=== PATIENT | female | born 1960 | race Caucasian/White ===

== ENCOUNTER → 2020-01-31 | Outpatient (CLI) | payer OTHER ==
--- NOTE | 2020-01-31 11:13 | US ---
EXAMINATION TYPE: US thyroid st tissue head/neck DATE OF EXAM: 01/31/2020 COMPARISON: NONE CLINICAL HISTORY: E21.0 PRIMARY HYPERPARATHYROIDISM. Hyperparathyroidism GLAND SIZE: Right Lobe: 6.4 x 1.9 x 1.9 cm Overall Parenchyma: homogenous Left Lobe: 5.4 x 2.0 x 1.7 cm Overall Parenchyma: homogeneous Isthmus Thickness: 0.4 cm NODULES RIGHT: # of nodules measured on right: 1 1. 0.6 X 0.3 x 0.6 cm hypoechoic cystic nodule at the medial inferior pole with well-defined margin s. This nodule is wider than tall and shows no intranodular vascularity. Prior size: no previous LEFT: # of nodules measured on left: 3 1. 1.2 X 1.3 x 1.1 cm isoechoic solid nodule at the mid pole with well-defined margins. This nodule is wider than tall and shows intranodular vascularity. Prior size: no previous 2. 0.8 X 0.5 x 0.7 cm hypoechoic mixed nodule at the lateral superior pole with well-defined margins . This nodule is wider than tall and shows no intranodular vascularity. Prior size: no previous 3. 0.8 X 0.6 x 0.9 cm hypoechoic mixed nodule at the mid inferior pole with well-defined margins. T his nodule is wider than tall and shows intranodular vascularity. Prior size: no previous ISTHMUS: # of nodules measured in the isthmus: 0 Bilateral neck scanned, no evidence of lymphadenopathy. Enlarged gland with multiple bilateral nodules with largest described above. IMPRESSION: Enlarged multinodular thyroid gland. The largest nodule measures 1.3 cm on the left and i s solid in nature. This nears criteria for fine-needle aspiration. Thyroid ultrasound is recommended in 6-12 months to assess for any interval growth.
[2020-01-31 11:47] LABS: ALT 18 U/L (4-34); AST 28 U/L (14-36); African American GFR (CKD) >90 (>60 ml/min/1.73 sqM); Albumin 4.5 g/dL (3.5-5.0); Alkaline Phosphatase 85 U/L (38-126); Anion Gap 4 mmol/L; Blood Urea Nitrogen 12 mg/dL (7-17); Calcium 10.8 mg/dL (8.4-10.2); Carbon Dioxide 29 mmol/L (22-30); Chloride 106 mmol/L (98-107); Glucose 91 mg/dL (74-99); Non-African American GFR(CKD) >90 (>60 ml/min/1.73 sqM); Potassium 4.8 mmol/L (3.5-5.1); Sodium 139 mmol/L (137-145); Total Bilirubin 0.3 mg/dL (0.2-1.3)
--- NOTE | 2020-01-31 12:44 | BD ---
EXAMINATION TYPE: Axial Bone Density DATE OF EXAM: 01/31/2020 COMPARISON: NONE CLINICAL HISTORY: 59 YR OLD FEMALE....ICD-10 CODE: E21.0 PRIMARY HYPERPARATHYROIDISM Height: 59.3 Weight: 109 FRAX RISK QUESTIONS: Secondary Osteoporosis: YES 3. Menopause before 45: YES Current Tobacco Use: YES RISK FACTORS HISTORY OF: HX OF ELBOW ONLY FX... YOUTH Family History of Osteoporosis: YES, HER GRANDMOTHER Diet low in dairy products/other sources of calcium: YES Postmenopausal woman: YES, AT ABOUT AGE AT 39 YRS OLD, UNKNOWN FOR MENOPAUSE DATE Hyperparathyroidism: YES Adrenal Insufficiency: NO MEDICATIONS: Additional Medications: REFLUX MEDS, MULTIVITAMIN Additional History: HYPERPARATHYROIDISM, REFLUX EXAM MEASUREMENTS: Bone mineral densitometry was performed using the [facility]. Bone mineral density as measured about the Lumbar spine is: ----- L1-L4(G/cm2): 0.836 T Score Values are as follows: ----- L1: -3.0 ----- L2: -2.8 ----- L3: -2.4 ----- L4: -3.3 ----- L1-L4: -2.9 Bone mineral density FIRST DEXA SCAN..........BASELINE STUDY Bone mineral density about the R hip (g/cm2): 0.741 Bone mineral density about the L hip (g/cm2): 0.779 T Score values are as follows: -----R Neck: -2.2 -----L Neck: -2.3 -----R Total: -2.1 -----L Total: -1.8 Bone mineral density BASELINE STUDY FRAX%s: THERE IS A 10.2% CHANCE FOR A MAJOR OSTEOPOROTIC FX AND A 2.8% FOR HIP.....PROBABILITY FOR FX IN 10 YRS TIME IMPRESSION: Osteoporosis (T Score less than -2.5) with respect to the lumbar spine. There is increased fracture risk and therapy is usually indicated based on age. Re-Screen 1-2 years. NOTE: T-SCORE=SD OF THE YOUNG ADULT MEAN.
== END | disposition home or self-care (01) ==
LOC: RADBDWWP 09:57
PROVIDERS: ATTEND Internal Medicine Endocrinology, Diabetes & Metabolism
DX: M81.0 Age-related osteoporosis without current pathological fracture (principal); E04.2 Nontoxic multinodular goiter; E21.0 Primary hyperparathyroidism
CPT/HCPCS: 76536; 77080; 80053; 82306; 83970

== ENCOUNTER → 2020-08-13 | Outpatient (CLI) | payer OTHER ==
[2020-08-13 21:36] LABS: African American GFR (CKD) 109.9 (60.0-200.0); Albumin 4.5 g/dL (3.80-4.90); Albumin/Globulin Ratio 2.65 (1.60-3.17); Anion Gap 8.1 mmol/L (4.00-12.00); BUN/Creat Ratio 12.86 Ratio (12.00-20.00); Calcium 9.7 mg/dL (8.7-10.3); Carbon Dioxide 25.9 mmol/L (21.6-31.8); Globulin 1.7 g/dL (1.6-3.3); Non-African American GFR(CKD) 94.8 (60.0-200.0); Potassium 4.5 mmol/L (3.5-5.5); Total Bilirubin 0.2 mg/dL (0.2-1.2); Total Protein 6.2 g/dL (6.2-8.2)
== END | disposition home or self-care (01) ==
LOC: LABWHC1 12:58
PROVIDERS: ATTEND Internal Medicine Endocrinology, Diabetes & Metabolism
DX: E21.0 Primary hyperparathyroidism (principal)
CPT/HCPCS: 36415; 80053; 82306; 83970

== ENCOUNTER → 2021-01-06 | Outpatient (CLI) | payer OTHER ==
[2021-01-06 22:14] LABS: African American GFR (CKD) 93.5 (60.0-200.0); Albumin 4.8 g/dL (3.80-4.90); Albumin/Globulin Ratio 2.82 (1.60-3.17); BUN/Creat Ratio 12.5 Ratio (12.00-20.00); Calcium 9.2 mg/dL (8.7-10.3); Globulin 1.7 g/dL (1.6-3.3); Non-African American GFR(CKD) 80.7 (60.0-200.0); Potassium 4.2 mmol/L (3.5-5.5); Total Bilirubin 0.3 mg/dL (0.2-1.2); Total Protein 6.5 g/dL (6.2-8.2)
== END | disposition home or self-care (01) ==
LOC: LABWHC1 13:47
PROVIDERS: ATTEND Internal Medicine Endocrinology, Diabetes & Metabolism
DX: E55.9 Vitamin D deficiency, unspecified (principal); M81.8 Other osteoporosis without current pathological fracture
CPT/HCPCS: 36415; 80053; 82306; 83970

== ENCOUNTER → 2021-03-13 | Outpatient (CLI) | payer OTHER ==
[2021-03-13 15:51] LABS: ALT 19 U/L (4-34); AST 41 U/L (14-36); African American GFR (CKD) >90 (>60 ml/min/1.73 sqM); Albumin 4.3 g/dL (3.5-5.0); Alkaline Phosphatase 82 U/L (38-126); Anion Gap 6 mmol/L; Blood Urea Nitrogen 10 mg/dL (7-17); Calcium 9.8 mg/dL (8.4-10.2); Carbon Dioxide 27 mmol/L (22-30); Chloride 106 mmol/L (98-107); Glucose 94 mg/dL (74-99); Non-African American GFR(CKD) 88 (>60 ml/min/1.73 sqM); Sodium 139 mmol/L (137-145); Total Bilirubin 0.7 mg/dL (0.2-1.3)
[2021-03-13 15:59] LABS: Potassium 5.9 mmol/L (3.5-5.1)
--- NOTE | 2021-03-15 19:19 | US ---
EXAMINATION TYPE: US thyroid st tissue head/neck DATE OF EXAM: 03/13/2021 COMPARISON: 01/31/2020 CLINICAL HISTORY: 60-year-old female E04.2 MULTINODULAR GOITER. TECHNIQUE: Multiple sonographic images of the thyroid gland are obtained. FINDINGS: GLAND SIZE: Right Lobe: 5.3 x 2.2 x 2.0 cm Overall Parenchyma: homogenous Left Lobe: 4.8 x 1.9 x 1.8 cm Overall Parenchyma: homogeneous Isthmus Thickness: 0.4 cm NODULES: Numerous scattered small colloid cysts are present. RIGHT: # of nodules measured on right: 1 1. 0.9 X 0.6 x 0.9 cm, lower , mixed, primarily solid isoechoic nodule, which is wider than tall, w ith ill-defined margins, without echogenic foci. Prior size: Not clearly seen previously. A previous medial lower pole cyst has resolved. LEFT: # of nodules measured on left: 3 1. 1.3 X 1.0 x 1.0 cm, mid , solid, isoechoic nodule, which is wider than tall, with ill-defined ma rgins, without echogenic foci. Prior size: 1.2 x 1.3 x 1.1 cm 2. 0.7 X 0.4 x 0.7 cm, upper , mixed, solid and cystic nodule, which is wider than tall, with smoo th margins, without echogenic foci. Prior size: 0.8 x 0.5 x 0.7 cm 3. 0.7 X 0.4 x 0.6 cm, lower , mixed, primarily solid, heterogeneous isoechoic nodule, which is wid er than tall, with ill-defined margins, without echogenic foci. Prior size: 0.8 x 0.6 x 0.9 cm ISTHMUS: # of nodules measured in the isthmus: 0 Bilateral neck scanned, no evidence of lymphadenopathy. IMPRESSION: 1. Multinodular goiter redemonstrated. 2. A 9 mm primarily solid nodule on the right was not clearly seen previously. This can be reassessed at short interval follow-up 3. The 3 dominant nodules measuring up to 1.3 cm on the left are largely unchanged.
== END | disposition home or self-care (01) ==
LOC: RADUSWWP 14:38
PROVIDERS: ATTEND Internal Medicine Endocrinology, Diabetes & Metabolism
DX: E04.2 Nontoxic multinodular goiter (principal)
CPT/HCPCS: 76536; 80053; 82306; 82523; 83970

== ENCOUNTER → 2022-10-08 | Outpatient (CLI) | payer OTHER ==
--- NOTE | 2022-10-11 10:18 | BD ---
EXAMINATION TYPE: Axial Bone Density DATE OF EXAM: 10/08/2022 COMPARISON: 01/31/2020 CLINICAL HISTORY: 62 years year old Female. ICD-10 CODE: M81.0 Age related Height: 58.7 IN Weight: 131 LBS FRAX RISK QUESTIONS: SECONDARY OSTEOPOROSIS: PARTIAL HYST AGE 39 Current Tobacco Use: YES RISK FACTORS HISTORY OF: Active: YES Diet low in dairy products/other sources of calcium: YES Postmenopausal woman: PARTIAL HYST AGE 39 MEDICATIONS: Additional Medications: CALCIUM, VIT D, EXAM MEASUREMENTS: Bone mineral densitometry was performed using the [facility]. Bone mineral density as measured about the Lumbar spine is: ----- L1-L4(G/cm2): 0.914 T Score Values are as follows: ----- L1: -2.2 ----- L2: -1.9 ----- L3: -2.0 ----- L4: -2.8 ----- L1-L4: -2.2 Bone mineral density has: Increased 8.4% since study of: 01/31/2020 Bone mineral density about the R hip (g/cm2): 0.737 Bone mineral density about the L hip (g/cm2): 0.727 T Score values are as follows: -----R Neck: -2.2 -----L Neck: -2.2 -----R Total: -2.1 -----L Total: -1.6 Bone mineral density has: Increased 2.0% since study of: 01/31/2020 FRAX%s: The graph provided illustrates a 11.6 chance for a major osteoporotic fx and a 3.0 chance for the hips probability for fx in 10 years time. IMPRESSION: Osteopenia (T Score between -2.5 and -1). There is slightly increased risk of fracture and the patient may be considered for treatment. Re-Screen 2-5 years. NOTE: T-SCORE=SD OF THE YOUNG ADULT MEAN.
--- NOTE | 2022-10-11 19:35 | MM ---
Reason for Exam: Screening (asymptomatic). Baseline mammogram. Patient History: Menarche at age 14. First Full-Term at age 20. Hysterectomy at age 39. Postmenopausal. Risk Values: Karolyn 5 year model risk: 1.1%. NCI Lifetime model risk: 5.2%. Prior Study Comparison: Patient's first Mammogram. Tissue Density: The breast tissue is heterogeneously dense. This may lower the sensitivity of mammography. Findings: Analyzed By CAD. No persisting abnormality on 3-D images. Few scattered benign punctate calcifications are noted. No significant mass, suspicious microcalcification, or other discrete abnormality is seen. Overall Assessment: Benign, BI-RAD 2 Management: Screening Mammogram of both breasts in 1 year. 1. Patient should continue monthly self breast exams. 2. A clinical breast exam by your physician is recommended on an annual basis. 3. This exam should not preclude additional follow-up of suspicious palpable abnormalities. Electronically signed and approved by: Jarocho Kilpatrick M.D. Radiologist
== END | disposition home or self-care (01) ==
LOC: RADMAMWWP 16:18
PROVIDERS: ATTEND Family Medicine
DX: Z12.31 Encounter for screening mammogram for malignant neoplasm of breast (principal); M85.89 Other specified disorders of bone density and structure, multiple sites; Z78.0 Asymptomatic menopausal state
CPT/HCPCS: 77063; 77067; 77080

== ENCOUNTER 2022-10-28 08:10 | Day surgery (SDC) | payer OTHER ==
[2022-10-26 14:56] VITALS: BMI 26.4
[2022-10-28] MEDS ORDERED: LACTATED RINGERS 1,000 ML IV SCH (08:30)
[2022-10-28] MEDS ORDERED: LIDOCAINE 1% (10MG/ML) FOR IV START INTRADERMA PRN (08:30)
[2022-10-28] MEDS ORDERED: LACTATED RINGERS 1,000 ML IV ONE (08:37)
[2022-10-28 08:44] VITALS: RESP 16; TEMP 96.8
[2022-10-28] MEDS ORDERED: PROPOFOL 10 MG/ML 20 ML VIAL IV ONE (09:10)
--- NOTE | 2022-10-28 09:12 | P.GSHP ---
History of Present Illness H&P Date: 10/28/22 Chief Complaint: Screening colonoscopy This 62-year-old female presents today for screening colonoscopy. Patient denies a significant GI complaints. Past Medical History Past Medical History: Osteoarthritis (OA) Additional Past Medical History / Comment(s): constipation / diarrhea., hx of severe kidney infection as a child. History of Any Multi-Drug Resistant Organisms: None Reported Past Surgical History: Section, Hysterectomy Additional Past Surgical History / Comment(s): partial parathyroid removed., c- section x3. Past Anesthesia/Blood Transfusion Reactions: No Reported Reaction Past Psychological History: No Psychological Hx Reported Smoking Status: Current every day smoker Past Alcohol Use History: None Reported Additional Past Alcohol Use History / Comment(s): smokes 1 ppd., started smoking 17 yrs old. Past Drug Use History: None Reported - Past Family History Father Family Medical History: Cancer Additional Family Medical History / Comment(s): lung cancer Mother Family Medical History: Cancer Additional Family Medical History / Comment(s): throat cancer Medications and Allergies Home Medications Medication Instructions Recorded Confirmed Type Calcium Carbonate [Calcium] 600 mg PO DAILY 10/26/22 10/26/22 History Cholecalciferol [Vitamin D3 (25 50 mcg PO DAILY 10/26/22 10/26/22 History Mcg = 1000 Iu)] Multivit with Calcium,Iron,Min 1 each PO DAILY 10/26/22 10/26/22 History [Women's Multivitamin] Naproxen Sodium [Aleve] 220 mg PO ONCE 10/26/22 10/26/22 History Allergies Allergy/AdvReac Type Severity Reaction Status Date / Time Milk Containing Products Allergy Unknown Diarrhea, Verified 10/26/22 14:39 [Dairy] upset stomach Surgical - Exam Vital Signs Temp Pulse Resp BP Pulse Ox 96.8 F L 83 16 134/90 97 10/28/22 08:38 10/28/22 08:38 10/28/22 08:38 10/28/22 08:38 10/28/22 08:38 - General well developed, well nourished, no distress - Eyes PERRL - ENT normal pinna - Neck no masses - Respiratory normal expansion - Cardiovascular Rhythm: regular - Abdomen Abdomen: soft, non tender Assessment and Plan Assessment: We'll perform screening colonoscopy
--- NOTE | 2022-10-28 09:32 | P.OP ---
Date of Procedure: 10/28/22 Preoperative Diagnosis: Screening colonoscopy Postoperative Diagnosis: Normal colon Procedure(s) Performed: Colonoscopy Anesthesia: MAC Surgeon: Carl De La Garza Pathology: none sent Condition: stable Disposition: PACU Description of Procedure: PROCEDURE: The patient was placed on the endoscopy table in the lateral position. Digital rectal examination was performed which revealed no abnormalities. es. Flexible colonoscope was then placed in the patient's anus and passed throughout the entire colon. The ileocecal valve was visualized. The cecum, ascending, transverse, descending and sigmoid colon were normal. The rectum was normal as well. There were no masses, polyps or diverticula noted in the entire colon. SUMMARY OF FINDINGS: Normal colonoscopy.
[2022-10-28 09:36] VITALS: PULSE 63
[2022-10-28 09:48] VITALS: BP 129/83
== END 2022-10-28 10:16 | disposition home or self-care (01) ==
LOC: ORWHC2ENDO 08:10
PROVIDERS: ATTEND Surgery
DX: Z12.11 Encounter for screening for malignant neoplasm of colon (principal); M19.90 Unspecified osteoarthritis, unspecified site; F17.210 Nicotine dependence, cigarettes, uncomplicated; Z80.1 Family history of malignant neoplasm of trachea, bronchus and lung
CPT/HCPCS: 45378; J2704

== ENCOUNTER 2024-04-01 14:39 | Emergency (ER) | payer OTHER ==
--- NOTE | 2024-04-01 15:01 | ED ---
Abdominal Pain HPI - General Source: patient, RN notes reviewed Mode of arrival: ambulatory Limitations: no limitations <Roselia Oconnor - Last Filed: 04/01/24 15:00> <Baltazar Orourke - Last Filed: 04/01/24 19:09> - General Chief Complaint: Abdominal Pain Stated Complaint: Right side abd pain Time Seen by Provider: 04/01/24 14:55 - History of Present Illness Initial Comments: Quick Note: This is a 63-year-old female who presents to the emergency department for abdominal pain. Reports right lower quadrant abdominal pain for the last few days. She has some radiation into the back. Reports mild nausea but no vomiting. She did have diarrhea at one point that has since improved. Denies any fevers/chills. (Roselia Oconnor) I did review the quick note and do agree with the assessment. Patient does confirm the above. No dysuria no hematuria. She did have some diarrhea. Did have some radiation into the back but also down the right anterior leg she does states she has some numbness to the proximal upper anterior thigh. No fevers chills sweats no history of kidney stones. (Baltazar Orourke) - Related Data Home Medications Medication Instructions Recorded Confirmed Calcium Carbonate [Calcium] 600 mg PO DAILY 10/26/22 10/26/22 Cholecalciferol [Vitamin D3 (25 50 mcg PO DAILY 10/26/22 10/26/22 Mcg = 1000 Iu)] Multivit with Calcium,Iron,Min 1 each PO DAILY 10/26/22 10/26/22 [Women's Multivitamin] Naproxen Sodium [Aleve] 220 mg PO ONCE 10/26/22 10/26/22 Previous Rx's Medication Instructions Recorded Ketorolac [Toradol] 10 mg PO Q6HR #20 tab 04/01/24 Allergies Allergy/AdvReac Type Severity Reaction Status Date / Time Milk Containing Products Allergy Unknown Diarrhea, Verified 10/26/22 14:39 (Dairy) upset [Dairy] stomach Review of Systems ROS Other: All systems not noted in ROS Statement are negative. <Roselia Oconnor - Last Filed: 04/01/24 15:00> ROS Other: All systems not noted in ROS Statement are negative. <Baltazar Orourke - Last Filed: 04/01/24 19:09> ROS Statement: Those systems with pertinent positive or pertinent negative responses have been documented in the HPI. Past Medical History Past Medical History: Hypertension, Osteoarthritis (OA) Additional Past Medical History / Comment(s): constipation / diarrhea., hx of severe kidney infection as a child. History of Any Multi-Drug Resistant Organisms: None Reported Past Surgical History: Section, Hysterectomy Additional Past Surgical History / Comment(s): partial parathyroid removed., x3. Past Anesthesia/Blood Transfusion Reactions: No Reported Reaction Past Psychological History: No Psychological Hx Reported Smoking Status: Current every day smoker Past Alcohol Use History: None Reported Past Drug Use History: None Reported - Past Family History Father Family Medical History: Cancer Additional Family Medical History / Comment(s): lung cancer Mother Family Medical History: Cancer Additional Family Medical History / Comment(s): throat cancer <Roselia Oconnor - Last Filed: 04/01/24 15:00> General Exam Limitations: no limitations <Roselia Oconnor - Last Filed: 04/01/24 15:00> General appearance: alert, in no apparent distress Head exam: Present: atraumatic, normocephalic, normal inspection Eye exam: Present: normal appearance, PERRL, EOMI. Absent: scleral icterus, conjunctival injection, periorbital swelling ENT exam: Present: normal exam, mucous membranes moist Neck exam: Present: normal inspection, full ROM, other (No stridor JVD or bruits). Absent: tenderness, meningismus, lymphadenopathy Respiratory exam: Present: normal lung sounds bilaterally. Absent: respiratory distress, wheezes, rales, rhonchi, stridor Cardiovascular Exam: Present: regular rate, normal rhythm, normal heart sounds. Absent: systolic murmur, diastolic murmur, rubs, gallop, clicks GI/Abdominal exam: Present: soft, tenderness (Mild right upper quadrant and right side tenderness no guarding rebound masses or bruits no pulsatile masses no overt hernias), normal bowel sounds. Absent: distended, guarding, rebound, rigid Rectal exam: Present: deferred Extremities exam: Present: normal inspection, full ROM, normal capillary refill. Absent: tenderness, pedal edema, joint swelling, calf tenderness Back exam: Present: normal inspection Neurological exam: Present: alert, oriented X3, CN II-XII intact Psychiatric exam: Present: normal affect, normal mood Skin exam: Present: warm, dry, intact, normal color. Absent: rash <Baltazar Orourke - Last Filed: 04/01/24 19:09> - General Exam Comments Initial Comments: Visual Physical Exam Vital signs reviewed General: Well-appearing, nontoxic, no acute distress. Head: Normocephalic, atraumatic Eyes: PERRLA, EOMI ENT: Airway patent Chest: Nonlabored breathing Skin: No visual rash, normal skin tone Neuro: Alert and oriented 3 Musculoskeletal: No gross abnormalities (Roselia Oconnor) Is a well-developed well-nourished awake alert oriented x 4 female no acute distress though she does state the pain is 6-7/10 in severity and right lower quadrant area. (SharadBaltazar) Course Vital Signs 04/01/24 14:52 Temperature 97.8 F Pulse Rate 97 Respiratory 20 Rate Blood Pressure 188/123 O2 Sat by Pulse 96 Oximetry Medical Decision Making <Roselia Oconnor - Last Filed: 04/01/24 15:00> - Lab Data Result diagrams: 04/01/24 14:58 04/01/24 14:58 <Baltazar Orourke - Last Filed: 04/01/24 19:09> - Medical Decision Making I performed the QuickNote portion of this chart. Signed Roselia Oconnor PA-C. (Roselia Oconnor) I did review the labs that were performed also did interpret the imaging no acute process seen on the abdominal pelvic CT. The presentation appears to be more likely musculoskeletal in origin the vasculature appears to be intact. Patient will be sent home on a trial of NSAIDs and will follow-up with her doctor. She is in agreement with this. Was pt. sent in by a medical professional or institution ([facility], [facility], urgent care, hospital, or residential...) When possible be specific @ -No Did you speak to anyone other than the patient for history (EMS, parent, family, police, friend...)? What history was obtained from this source @ -No Did you review nursing and triage notes (agree or disagree)? Why? @ -I reviewed and agree with nursing and triage notes Were old charts reviewed (outside hosp., previous admission, EMS record, old EKG, old radiological studies, urgent care reports/EKG's, residential records)? Report findings @ -No old charts were reviewed Differential Diagnosis (chest pain, altered mental status, abdominal pain women, abdominal pain men, vaginal bleeding, weakness, fever, dyspnea, syncope, headache, dizziness, GI bleed, back pain, seizure, CVA, palpatations, mental health, musculoskeletal)? @ -Abdominal pain EKG interpreted by me (3pts min.). @ -As above EKG interpreted by me sinus rhythm at 77 NE interval 142 QRS duration 84 QT/QTc 360/[address]-T wave changes X-rays interpreted by me (1pt min.). @ -None done CT interpreted by me (1pt min.). @ -CT abdomen pelvis with IV contrast interpreted by me no evidence of acute processes the appendix is not visualized with no evidence of inflammatory changes no evidence of diverticular disease vascular appears to be intact] U/S interpreted by me (1pt. min.). @ -None done What testing was considered but not performed or refused? (CT, X-rays, U/S, labs)? Why? @ -None What meds were considered but not given or refused? Why? @ -None Did you discuss the management of the patient with other professionals (professionals i.e. , PA, RUG DYER HELPER, lab, RT, psych nurse, social and human services assistant, clipper operator, teacher, hospital chief financial officer, case assistant)? Give summary @ -No Was smoking cessation discussed for >3mins.? @ -No Was critical care preformed (if so, how long)? @ -No Were there social determinants of health that impacted care today? How? (Homelessness, low income, unemployed, alcoholism, drug addiction, transporta tion, low edu. Level, literacy, decrease access to med. care, longterm, rehab)? @ -No Was there de-escalation of care discussed even if they declined (Discuss DNR or withdrawal of care, Hospice)? DNR status @ -No What co-morbidities impacted this encounter? (DM, HTN, Smoking, COPD, CAD, Cancer, CVA, ARF, Chemo, Hep., AIDS, mental health diagnosis, sleep apnea, morbid obesity)? @ -Prior history of Was patient admitted / discharged? Hospital course, mention meds given and route, prescriptions, significant lab abnormalities, going to OR and other pertinent info. @ -Hospital course patient was discharged home on prescription NSAIDs with follow-up with her doctor. Undiagnosed new problem with uncertain prognosis? @ -No Drug Therapy requiring intensive monitoring for toxicity (Heparin, Nitro, Insulin, Cardizem)? @ -No Were any procedures done? @ -No Diagnosis/symptom? @ -Musculo- skeletal pain Acute, or Chronic, or Acute on Chronic? @ -Acute Uncomplicated (without systemic symptoms) or Complicated (systemic symptoms)? @ -Default Side effects of treatment? @ -No Exacerbation, Progression, or Severe Exacerbation? @ -No Poses a threat to life or bodily function? How? (Chest pain, USA, [place], pneumonia, PE, COPD, DKA, ARF, appy, cholecystitis, CVA, Diverticulitis, Homicidal, Suicidal, threat to staff... and all critical care pts) @ -No (Baltazar Orourke) - Lab Data Lab Results 04/01/24 04/01/24 04/01/24 Range/Units 14:58 14:58 14:58 WBC 8.6 (3.8-10.6) k/uL RBC 4.94 (3.80-5.40) m/uL Hgb 15.0 (11.4-16.0) gm/dL Hct 45.7 (34.0-46.0) % MCV 92.5 (80.0-100.0) fL MCH 30.3 (25.0-35.0) pg MCHC 32.7 (31.0-37.0) g/dL RDW 13.6 (11.5-15.5) % Plt Count 228 (150-450) k/uL MPV 8.7 Neutrophils % 67 % Lymphocytes % 25 % Monocytes % 5 % Eosinophils % 1 % Basophils % 1 % Neutrophils # 5.8 (1.3-7.7) k/uL Lymphocytes # 2.1 (1.0-4.8) k/uL Monocytes # 0.4 (0-1.0) k/uL Eosinophils # 0.1 (0-0.7) k/uL Basophils # 0.1 (0-0.2) k/uL Sodium 140 (137-145) mmol/L Potassium 4.8 (3.5-5.1) mmol/L Chloride 106 (98-107) mmol/L Carbon Dioxide 29 (22-30) mmol/L Anion Gap 5 mmol/L BUN 6 L (7-17) mg/dL Creatinine 0.68 (0.52-1.04) mg/dL Est GFR (CKD-EPI)AfAm >90 (>60 ml/min/1.73 sqM) Est GFR (CKD-EPI)NonAf >90 (>60 ml/min/1.73 sqM) Glucose 101 H (74-99) mg/dL Plasma Lactic Acid Nikko (0.7-2.0) mmol/L Calcium 10.1 (8.4-10.2) mg/dL Total Bilirubin 0.4 (0.2-1.3) mg/dL AST 27 (14-36) U/L ALT 18 (4-34) U/L Alkaline Phosphatase 82 (38-126) U/L Total Protein 7.3 (6.3-8.2) g/dL Albumin 4.6 (3.5-5.0) g/dL Amylase 60 (30-110) U/L Lipase 119 (23-300) U/L Urine Color Colorless Urine Appearance Clear (Clear) Urine pH 7.0 (5.0-8.0) Ur Specific [place] 1.002 (1.001-1.035) Urine Protein Negative (Negative) Urine Glucose (UA) Negative (Negative) Urine Ketones Negative (Negative) Urine Blood Negative (Negative) Urine Nitrite Negative (Negative) Urine Bilirubin Negative (Negative) Urine Urobilinogen <2.0 (<2.0) mg/dL Ur Leukocyte Esterase Trace H (Negative) Urine RBC 1 (0-5) /hpf Urine WBC 4 (0-5) /hpf 04/01/24 Range/Units 15:01 WBC (3.8-10.6) k/uL RBC (3.80-5.40) m/uL Hgb (11.4-16.0) gm/dL Hct (34.0-46.0) % MCV (80.0-100.0) fL MCH (25.0-35.0) pg MCHC (31.0-37.0) g/dL RDW (11.5-15.5) % Plt Count (150-450) k/uL MPV Neutrophils % % Lymphocytes % % Monocytes % % Eosinophils % % Basophils % % Neutrophils # (1.3-7.7) k/uL Lymphocytes # (1.0-4.8) k/uL Monocytes # (0-1.0) k/uL Eosinophils # (0-0.7) k/uL Basophils # (0-0.2) k/uL Sodium (137-145) mmol/L Potassium (3.5-5.1) mmol/L Chloride (98-107) mmol/L Carbon Dioxide (22-30) mmol/L Anion Gap mmol/L BUN (7-17) mg/dL Creatinine (0.52-1.04) mg/dL Est GFR (CKD-EPI)AfAm (>60 ml/min/1.73 sqM) Est GFR (CKD-EPI)NonAf (>60 ml/min/1.73 sqM) Glucose (74-99) mg/dL Plasma Lactic Acid Nikko 1.1 (0.7-2.0) mmol/L Calcium (8.4-10.2) mg/dL Total Bilirubin (0.2-1.3) mg/dL AST (14-36) U/L ALT (4-34) U/L Alkaline Phosphatase (38-126) U/L Total Protein (6.3-8.2) g/dL Albumin (3.5-5.0) g/dL Amylase (30-110) U/L Lipase (23-300) U/L Urine Color Urine Appearance (Clear) Urine pH (5.0-8.0) Ur Specific [place] (1.001-1.035) Urine Protein (Negative) Urine Glucose (UA) (Negative) Urine Ketones (Negative) Urine Blood (Negative) Urine Nitrite (Negative) Urine Bilirubin (Negative) Urine Urobilinogen (<2.0) mg/dL Ur Leukocyte Esterase (Negative) Urine RBC (0-5) /hpf Urine WBC (0-5) /hpf Disposition <Roselia Oconnor - Last Filed: 04/01/24 15:00> Is patient prescribed a controlled substance at d/c from ED?: No Time of Disposition: 19:08 Decision Date: 04/01/24 Decision Time: 19:09 <Baltazar Orourke - Last Filed: 04/01/24 19:09> Clinical Impression: Musculoskeletal pain, Abdominal pain Disposition: HOME SELF-CARE Condition: Good Instructions (If sedation given, give patient instructions): Abdominal Pain (ED), Musculoskeletal Pain (ED) Prescriptions: Ketorolac [Toradol] 10 mg PO Q6HR #20 tab Referrals: Mariann Mott NPC [Primary Care Provider] - 1-2 days
[2024-04-01 15:45] LABS: Basophils # (A) 0.1 k/uL (0-0.2); Basophils % (A) 1 %; Eosinophils # (A) 0.1 k/uL (0-0.7); Eosinophils % (A) 1 %; HCT 45.7 % (34.0-46.0); Lymphocytes # (A) 2.1 k/uL (1.0-4.8); Lymphocytes % (A) 25 %; MCH 30.3 pg (25.0-35.0); MCHC 32.7 g/dL (31.0-37.0); MCV 92.5 fL (80.0-100.0); Mean Platelet Volume 8.7; Monocytes # (A) 0.4 k/uL (0-1.0); Monocytes % (A) 5 %; Neutrophils # (A) 5.8 k/uL (1.3-7.7); Neutrophils % (A) 67 %; Platelet Count 228 k/uL (150-450); RBC 4.94 m/uL (3.80-5.40); RDW 13.6 % (11.5-15.5); WBC 8.6 k/uL (3.8-10.6)
[2024-04-01 16:02] LABS: Appearance,Urine Clear (Clear); Bilirubin,Urine Negative (Negative); Blood,Urine Negative (Negative); Color,Urine Colorless; Glucose,Urine (UA) Negative (Negative); Ketones,Urine Negative (Negative); Leukocyte Esterase,Urine Trace (Negative); Nitrite,Urine Negative (Negative); Protein,Urine Negative (Negative); RBC,Urine 1 /hpf (0-5); Specific Gravity,Urine 1.002 (1.001-1.035); Urobilinogen,Urine <2.0 mg/dL (<2.0); WBC,Urine 4 /hpf (0-5)
[2024-04-01 16:07] LABS: ALT 18 U/L (4-34); AST 27 U/L (14-36); African American GFR (CKD) >90 (>60 ml/min/1.73 sqM); Albumin 4.6 g/dL (3.5-5.0); Alkaline Phosphatase 82 U/L (38-126); Amylase 60 U/L (30-110); Anion Gap 5 mmol/L; Blood Urea Nitrogen 6 mg/dL (7-17); Calcium 10.1 mg/dL (8.4-10.2); Carbon Dioxide 29 mmol/L (22-30); Chloride 106 mmol/L (98-107); Glucose 101 mg/dL (74-99); Lipase 119 U/L (23-300); Non-African American GFR(CKD) >90 (>60 ml/min/1.73 sqM); Potassium 4.8 mmol/L (3.5-5.1); Sodium 140 mmol/L (137-145); Total Bilirubin 0.4 mg/dL (0.2-1.3); Total Protein 7.3 g/dL (6.3-8.2)
--- NOTE | 2024-04-01 18:35 | CT ---
EXAMINATION TYPE: CT abdomen pelvis w con CT DLP: 568 mGycm, Automated exposure control for dose reduction was used. DATE OF EXAM: 04/01/2024 6:11 PM COMPARISON: None. CLINICAL INDICATION:Female, 63 years old with history of Right lower quadrant abdominal pain; RLQ shonna n TECHNIQUE: Axial CT of the abdomen and pelvis. Sagittal and coronal reformats were created on a [employer] workstation. Contrast used:180 mL of Isovue 300 with IV Contrast, (none if empty) Oral contrast used: without Oral Contrast (none if empty) FINDINGS: LOWER CHEST: Unremarkable ABDOMEN LIVER: Unremarkable GALLBLADDER AND BILE DUCTS: Cholelithiasis PANCREAS: Unremarkable. SPLEEN: Unremarkable. A splenule is present in the left upper quadrant ADRENAL GLANDS: Unremarkable. KIDNEYS AND URETERS: No evidence of hydronephrosis or renal calculus. Contrast is seen extending thro ugh the ureters into the bladder. PELVIS BLADDER: Unremarkable REPRODUCTIVE: Unremarkable. Subcentimeter cyst in the region of the right adnexa. ABDOMEN & PELVIS STOMACH AND BOWEL: Stomach and duodenum are unremarkable. The appendix is not discretely identified. No inflammatory changes are present in the right lower quadrant. No evidence of bowel obstruction. PERITONEUM/RETROPERITONEUM: No evidence of pneumoperitoneum or free fluid. VASCULATURE: No evidence of aortic aneurysm. MUSCULOSKELETAL: No acute osseous abnormalities LYMPH NODES: No gross evidence for lymphadenopathy. SOFT TISSUE/ABDOMINAL WALL: Unremarkable IMPRESSION: No evidence of acute process. Nonvisualization of the appendix, however no inflammatory changes prese nt within the right lower quadrant.
[2024-04-01] MEDS: KETOROLAC 15 MG/ML 1 ML VIAL IVP STA (19:18)
[2024-04-01 19:46] VITALS: BP 155/99; PULSE 64; RESP 18; TEMP 97.9
== END 2024-04-01 19:25 | disposition home or self-care (01) ==
LOC: EC 14:39
DX: M79.18 Myalgia, other site (principal); R10.31 Right lower quadrant pain; F17.200 Nicotine dependence, unspecified, uncomplicated; Z91.011 Allergy to milk products
CPT/HCPCS: 36415; 93005; 80053; 82150; 83605; 83690; 85025; 81001; 74177; 99284; 96374; J1885; Q9967

== ENCOUNTER → 2025-05-29 | Outpatient (CLI) | payer OTHER ==
--- NOTE | 2025-05-29 15:34 | MM ---
Reason for Exam: Screening (asymptomatic). Last mammogram was performed 2 year(s) and 8 month(s) ago. Patient History: Menarche at age 14. First Full-Term at age 20. Hysterectomy at age 39. Postmenopausal. Risk Values: Karolyn 5 year model risk: 1.2%. NCI Lifetime model risk: 4.7%. Prior Study Comparison: 10/08/2022 Bilateral MG 3D screening mammo w/cad, [facility]. Tissue Density: The breasts are heterogeneously dense, which may obscure small masses. Findings: Analyzed By CAD. Asymmetric density lateral left CC view middle depth appears more pronounced. This may represent a superimposition shadow but further evaluation is recommended. Otherwise, no significant change. Overall Assessment: Incomplete: need additional imaging evaluation, BI-RAD 0 Management: Special View Mammogram of the left breast. [facility] will attempt to contact patient to return for supplemental views and ultrasound if indicated. [facility], , 05/29/2025 3:31 PM. Electronically signed and approved by: Jarocho Kilpatrick M.D. Radiologist
--- NOTE | 2025-05-30 11:55 | BD ---
EXAMINATION TYPE: Axial Bone Density DATE OF EXAM: 05/29/2025 CLINICAL HISTORY: 65 years old Female. ICD-10 CODE: M810 AGRE RELATED OSTEO , Additional History: Height: 4 ft 11 in Weight: 130 FRAX RISK QUESTIONS: Alcohol (3 or more units per day): no Family History (Parent hip fracture): no Glucocorticoids (More than 3mos): no (Ex: prednisone, prednisolone, methylprednisolone, dexamethasone, and hydrocortisone). History of Fracture in Adulthood: no Secondary Osteoporosis: 1. Type 1 Diabetes: no 2. Hyperthyroidism: no 3. Menopause before 45: no 4. Malnutrition: no 5. Chronic liver disease: no Rheumatoid Arthritis: no Current Tobacco Use: yes RISK FACTORS HISTORY OF: Surgery to Spine/Hip(right/left)/Wrist (right/left): no MEDICATIONS: Thyroid Medications: none Osteoporosis Medications: none EXAM MEASUREMENTS: Bone mineral densitometry was performed using the [employer] System. Bone mineral density as measured about the Lumbar spine is: ----- L1-L4(G/cm2): 0.892 T Score Values are as follows: ----- L1: -2.3 ----- L2: -2.1 ----- L3: -2.1 ----- L4: -3.1 ----- L1-L4: -2.4 Z Score Values are as follows: ----- L1: -0.6 ----- L2: -0.4 ----- L3: -0.4 ----- L4: -1.4 ----- L1-L4: -0.7 Bone mineral density has: decreased -2.4 % since study of: 2021 Bone mineral density about the R hip (g/cm2): 0.695 Bone mineral density about the L hip (g/cm2): 0.704 T Score values are as follows: -----R Neck: -2.5 -----L Neck: -2.4 -----R Total: -2.3 -----L Total: -1.9 Z Score values are as follows: -----R Neck: -0.9 -----L Neck: -0.9 -----R Total: -1.0 -----L Total: -0.6 Bone mineral density has: decreased -3.6 % since study of: 2021 FRAX%s: The graph provided illustrates a 13.8 % chance for a major osteoporotic fx and a 4.4 % chance for the hips probability for fx in 10 years time. IMPRESSION: Osteoporosis (T Score less than -2.5). There is increased fracture risk and therapy is usually indicated based on age. Re-Screen 1-2 years. NOTE: T-SCORE=SD OF THE YOUNG ADULT MEAN. [facility], , 05/30/2025 11:53 AM
== END | disposition home or self-care (01) ==
LOC: RADMAMWWP 12:57
PROVIDERS: ATTEND Family Medicine
DX: Z12.31 Encounter for screening mammogram for malignant neoplasm of breast (principal); M81.0 Age-related osteoporosis without current pathological fracture; R92.333 Mammographic heterogeneous density, bilateral breasts; Z78.0 Asymptomatic menopausal state
CPT/HCPCS: 77067; 77080

== ENCOUNTER → 2025-06-04 | Outpatient (CLI) | payer OTHER ==
--- NOTE | 2025-06-04 11:44 | MM ---
Reason for Exam: Additional evaluation requested from abnormal screening. Last screening mammogram was performed less than 1 month ago. Patient History: Menarche at age 14. First Full-Term at age 20. Hysterectomy at age 39. Postmenopausal. Risk Values: Karolyn 5 year model risk: 1.2%. NCI Lifetime model risk: 4.7%. Prior Study Comparison: 10/08/2022 Bilateral MG 3D screening mammo w/cad, [facility]. 05/29/2025 Bilateral MG screening mammo w CAD, [facility]. Tissue Density: Left: The breasts are heterogeneously dense, which may obscure small masses. Findings: Analyzed By CAD. No distinct suspicious new lesion persists on additional views. Overall Assessment: Negative, BI-RAD 1 Management: Screening Mammogram of both breasts in 1 year. Return to routine follow-up. Results were given to the patient verbally at the time of exam. Patient should continue monthly self-breast exams. A clinical breast exam by your physician is recommended on an annual basis. This exam should not preclude additional follow-up of suspicious palpable abnormalities. Note on Karolyn scores and lifetime risk: 1. A Karolyn score greater than 3% is considered moderate risk. If this is the case, consider specialist referral to assess eligibility for a risk reducing agent. 2. If overall lifetime risk for the development of breast cancer is 20% or higher, the patient may qualify for future screening with alternating mammogram and breast MRI. [facility], , 06/04/2025 11:41 AM. Electronically signed and approved by: Dante Gonzalez M.D.
== END | disposition home or self-care (01) ==
LOC: RADMAMWWP 11:06
PROVIDERS: ATTEND Family Medicine
DX: R92.8 Other abnormal and inconclusive findings on diagnostic imaging of breast (principal); R92.332 Mammographic heterogeneous density, left breast; Z78.0 Asymptomatic menopausal state
CPT/HCPCS: 77061; 77065